=== PATIENT | female | born 2000 | race American Indian/Alaskan Native ===

== ENCOUNTER 2022-08-04 12:33 | Outpatient (CLI) | payer OTHER ==
--- NOTE | 2022-08-04 16:09 | Ultrasound Report ---
ULTRASOUND OBSTETRIC COMPLETE INDICATION / CLINICAL INFORMATION: suspected IUGR. Clinical Gestational Age (GA) in weeks.days: 35.1 TECHNIQUE: Transabdominal. COMPARISON: None available. FINDINGS: NUMBER: Single PRESENTATION: cephalic PLACENTA: Posterior fundal and free of the os. MATERNAL ADNEXA: No significant abnormality. AMNIOTIC FLUID VOLUME: normal AMNIOTIC FLUID INDEX (LUCA) in cm (if measured): 16.6 ANATOMY: anatomical survey was not performed. MEASUREMENTS: - Biparietal Diameter = 8.4 cm = 33.5 weeks.days - Head Circumference = 30.8 cm = 34.2 weeks.days - Abdominal Circumference = 29.3 cm = 33.2 weeks.days - Femur Length = 6.7 cm = 34.4 weeks.days - Estimated Weight (in grams, if calculated): 2072 - Heart Rate (beats per minute): 131 ADDITIONAL FINDINGS: None. PERCENTILE ESTIMATED WEIGHT (if calculated): Not calculated AVERAGE ULTRASOUND AGE (AUA) in weeks.days = 34.0 IMPRESSION: 1. Single intrauterine with AUA of 34.0 weeks.days 2. No significant sonographic abnormality. ULTRASOUND OB VELOCIMETRY UMBILICAL ARTERY HISTORY: Severe intrauterine growth restriction TECHNIQUE: Transabdominal ultrasound with color and spectral Doppler imaging COMPARISON: None FINDINGS: 3 segments of the umbilical cord were evaluated. heart rate measures 131 bpm. The spectral wave forms are normal and persistent. Average S/D ratio measures: 2.2 Average resistive index measures: 0.5 IMPRESSION: Within normal limits. ULTRASOUND BIOPHYSICAL PROFILE INDICATION: suspected IUGR. COMPARISON: None available. FINDINGS: heart rate is 131 beats per minute. breathing movement = 2 Gross body movement = 2 tone = 2 Qualitative amniotic fluid volume = 2 IMPRESSION: biophysical profile = 07/03 Signer Name: Hector Troncoso Jr, MD Signed: 08/04/2022 4:05 PM Workstation Name: [id number]
[2022-08-04 17:58] LABS: Hepatitis C Virus Antibody Non-Reactive (NonReactive)
== END 2022-08-04 16:12 | disposition home or self-care (01) ==
LOC: APU 12:33 → TRG 12:33 → APU 12:34 → TRG 16:12
PROVIDERS: ATTEND Obstetrics & Gynecology
DX: Z34.93 Encounter for supervision of normal pregnancy, unspecified, third trimester (principal); Z3A.35 35 weeks gestation of pregnancy
CPT/HCPCS: 76805; 76816; 76819; 76820; 86592; 86706; 86762; 86803; 87086; 87116